=== PATIENT | female | born 1985 | race Two or more races ===

== ENCOUNTER 2016-12-09 13:04 | Inpatient (IN) | payer OTHER ==
[~2016-12-09] VITALS: Ht 149.9 cm; Wt 70.7 kg
[2016-12-09] MEDS ORDERED: DIPHENHYDRAMINE 50 MG/ML, 1ML ONE (13:23)
[2016-12-09] MEDS ORDERED: METOCLOPRAMIDE 5 MG/ML, 2ML ONE (13:23)
[2016-12-09] MEDS ORDERED: METOCLOPRAMIDE 5 MG/ML, 2ML IVPush ONE (13:30)
[2016-12-09] MEDS ORDERED: SODIUM CHLORIDE 0.9% 1,000ML IVBOLUS ONE (13:30)
[2016-12-09] MEDS ORDERED: DIPHENHYDRAMINE 50 MG/ML, 1ML IVPush ONE (13:30)
[2016-12-09] MEDS ORDERED: KETOROLAC 30 MG/1 ML IVPush ONE (13:30)
[2016-12-09] MEDS ORDERED: SODIUM CHLORIDE FLUSH 10ML SYR IVF ONE ×2 (13:30)
[2016-12-09 13:58] LABS: HEMATOCRIT 42.8 % (34.6-47.8); HEMOGLOBIN 14.8 g/dL (11.7-16.4); WHITE BLOOD COUNT 5.5 x10^3/uL (3.4-10)
[2016-12-09 14:08] LABS: BLOOD UREA NITROGEN 13 mg/dL (7-18)
[2016-12-09] MEDS ORDERED: DEXAMETHASONE 4 MG/ML, 1ML IVPush ONE (14:30)
[2016-12-09] MEDS ORDERED: LIDOCAINE 4% TOPICAL SOLUTION 50 ML TP ONE (14:30)
[2016-12-09] MEDS ORDERED: KETOROLAC 30 MG/1 ML ONE (14:40)
[2016-12-09] MEDS ORDERED: DEXAMETHASONE 4 MG/ML, 5ML ONE (14:40)
[2016-12-09] MEDS ORDERED: SUMATRIPTAN 6MG/0.5ML SQ ONE ×3 (14:40→17:30)
[2016-12-09] MEDS ORDERED: HYDROmorphone 1 MG/ML, 1ML ONE ×2 (15:52→19:19)
[2016-12-09] MEDS ORDERED: HYDROmorphone 2 MG/ML, 1ML IVPush PRN ×2 (16:00→17:30)
[2016-12-09] MEDS ORDERED: NS + 20MEQ KCL 1,000 ML IV SCH ×2 (17:03→20:30)
[2016-12-09] MEDS ORDERED: POTASSIUM CHLORIDE 20 MEQ TAB.ER.PRT PO ONE (17:30)
[2016-12-09] MEDS ORDERED: METOCLOPRAMIDE 5 MG/ML, 2ML IVPush PRN (17:30)
[2016-12-09] MEDS ORDERED: DEXAMETHASONE 4 MG/ML, 1ML IVPush SCH (17:30)
[2016-12-09] MEDS ORDERED: hydrALAzine 20 MG/ML, 1ML IVPush PRN (17:30)
[2016-12-09] MEDS ORDERED: ONDANSETRON 2MG/ML, 2ML IVPush PRN (17:30)
[2016-12-09] MEDS ORDERED: ONDANSETRON ODT 4 MG PO PRN (17:30)
[2016-12-09] MEDS ORDERED: ENALAPRILAT 1.25 MG/ML, 2ML IVPush PRN (17:30)
[2016-12-09] MEDS ORDERED: ZOLPIDEM 5MG TABLET PO PRN (17:30)
[2016-12-09] MEDS ORDERED: GADOBUTROL 7.5 MMOL/7.5 ML PFS ONE (17:44)
[2016-12-09 19:00] VITALS: BP 161/115
[2016-12-09] MEDS: DEXAMETHASONE 4 MG/ML, 1ML IVPush SCH (20:29)
[2016-12-09] MEDS: PROPRANOLOL 60 MG CAP.SA.24H PO SCH (20:31)
[2016-12-09 21:45] VITALS: BP 181/138
[2016-12-10] MEDS: FAMOTIDINE 20 MG TABLET PO SCH ×2 (00:12→08:51)
[2016-12-10 01:26] VITALS: BP 125/87
[2016-12-10] MEDS: DEXAMETHASONE 4 MG/ML, 1ML IVPush SCH ×4 (02:58→23:30)
[2016-12-10] MEDS: OXYcodone IR 5MG TABLET PO PRN ×2 (04:31→23:45)
[2016-12-10 06:17] LABS: HEMATOCRIT 41.2 % (34.6-47.8); HEMOGLOBIN 14.1 g/dL (11.7-16.4); WHITE BLOOD COUNT 6.4 x10^3/uL (3.4-10)
[2016-12-10 06:45] LABS: BLOOD UREA NITROGEN 15 mg/dL (7-18)
[2016-12-10 08:32] VITALS: BP 120/80
[2016-12-10] MEDS: PROPRANOLOL 60 MG CAP.SA.24H PO SCH (08:51)
[2016-12-10 13:11] VITALS: BP 123/79
[2016-12-10] MEDS ORDERED: ENOXAPARIN 40 MG/0.4 ML SQ SCH (15:30)
[2016-12-10 17:07] LABS: RAPID INFLUENZA A Negative (Negative); RAPID INFLUENZA B Negative (Negative)
[2016-12-10 20:00] VITALS: BP 126/79
[2016-12-11 02:00] VITALS: BP 131/86
[2016-12-11] MEDS: DEXAMETHASONE 4 MG/ML, 1ML IVPush SCH ×2 (05:30→11:35)
[2016-12-11 05:43] LABS: HEMATOCRIT 39.5 % (34.6-47.8); HEMOGLOBIN 13.7 g/dL (11.7-16.4); WHITE BLOOD COUNT 14.4 x10^3/uL (3.4-10)
[2016-12-11 05:45] LABS: BLOOD UREA NITROGEN 16 mg/dL (7-18)
[2016-12-11] MEDS: OXYcodone IR 5MG TABLET PO PRN (05:49)
[2016-12-11 06:31] VITALS: BP 123/81
[2016-12-11] MEDS: PROPRANOLOL 60 MG CAP.SA.24H PO SCH (08:28)
[2016-12-11 13:27] VITALS: BP 144/96
[2016-12-11] MEDS ORDERED: PROP60CA PO (13:37)
[2016-12-12 16:03] LABS: WESTNILEVIRUSIGG SEE PRINTED REPORT; WESTNILEVIRUSIGM SEE PRINTED REPORT
== END 2016-12-11 16:37 | disposition home or self-care (01) | DRG 103 ==
LOC: ED 16:15 → EDIP 16:20 → ED 17:15 → 3NE 18:36
PROVIDERS: ADMIT Hospitalist; ATTEND Internal Medicine
DX: G43.909 Migraine, unspecified, not intractable, without status migrainosus (principal); E87.6 Hypokalemia; I10 Essential (primary) hypertension; Z86.32 Personal history of gestational diabetes; Z82.49 Family history of ischemic heart disease and other diseases of the circulatory system
CPT/HCPCS: 36415; 70450; 70553; 72125; 80048; 80061; 82040; 83735; 84100; 84439; 84443; 85025; 85651; 86788; 86789; 87400; 93005; 96372; 96374; 96375; 96376; A9585; J1100; J1170; J1885; J2405; J3480; J0360; J1200; J2765; J3030; J7030